=== PATIENT | male | born 1990 | race Caucasian/White ===

== ENCOUNTER 2017-06-11 21:30 | Emergency (ER) | payer OTHER ==
[2017-06-11] MEDS ORDERED: SODIUM CHLORIDE 0.9% 1,000 ML IV STA (21:39)
[2017-06-11] MEDS ORDERED: IBUPROFEN 400 MG TAB PO STA (21:40)
[2017-06-11] MEDS ORDERED: ACETAMINOPHEN TAB 500 MG TAB PO STA (21:40)
[2017-06-11] MEDS ORDERED: FAMOTIDINE 20 MG/2 ML VIAL IV STA (21:43)
--- NOTE | 2017-06-11 21:43 | ED ---
General Adult HPI - General Chief complaint: Upper Respiratory Infection Stated complaint: General pain, congestion Time Seen by Provider: 06/11/17 21:35 Source: patient, family, EMS, RN notes reviewed Mode of arrival: EMS Limitations: no limitations - History of Present Illness Initial comments: patient is a pleasant 26-year-old male presenting to the emergency department with multiple complaints. Onset of symptoms was this morning. Patient has had sinus congestion with drainage. Patient has had cough with green productive sputum. Patient has had chills unclear if he has had a fever. Patient feels achy all over. Patient has some more discomfort in his chest than other places. Patient does feel somewhat short of breath. Patient is nauseated and did vomit a couple of times. Nausea improved with Zofran by EMS. no abdominal pain. Patient states it hurts to move. - Related Data Home Medications Medication Instructions Recorded Confirmed Aspirin 162 mg PO ONCE PRN 06/11/17 06/11/17 Previous Rx's Medication Instructions Recorded Oseltamivir [Tamiflu] 75 mg PO Q12HR #9 cap 06/11/17 Allergies Allergy/AdvReac Type Severity Reaction Status Date / Time Penicillins Allergy Rash/Hives Verified 06/11/17 21:49 Review of Systems ROS Statement: Those systems with pertinent positive or pertinent negative responses have been documented in the HPI. ROS Other: All systems not noted in ROS Statement are negative. Constitutional: Reports: chills Eyes: Denies: eye pain ENT: Reports: congestion Respiratory: Reports: cough, dyspnea Cardiovascular: Reports: chest pain Endocrine: Reports: fatigue Gastrointestinal: Reports: nausea, vomiting Genitourinary: Denies: dysuria Musculoskeletal: Denies: joint swelling Skin: Denies: rash Neurological: Denies: weakness Past Medical History Additional Past Medical History / Comment(s): cerebral palsy, History of Any Multi-Drug Resistant Organisms: None Reported Past Surgical History: No Surgical Hx Reported Past Psychological History: No Psychological Hx Reported Smoking Status: Former smoker Past Alcohol Use History: Rare Past Drug Use History: None Reported General Exam Limitations: no limitations General appearance: alert, in no apparent distress Head exam: Present: atraumatic Eye exam: Present: normal appearance, PERRL ENT exam: Present: normal oropharynx Neck exam: Present: normal inspection Respiratory exam: Present: normal lung sounds bilaterally Cardiovascular Exam: Present: regular rate, normal rhythm Expanded Peripheral pulses: 2+: Dorsalis Pedis (R), Dorsalis Pedis (L) GI/Abdominal exam: Present: soft, tenderness (mild epigastric tenderness). Absent: distended Extremities exam: Present: other (leg atrophy). Absent: pedal edema, calf tenderness Back exam: Present: normal inspection Neurological exam: Present: alert Psychiatric exam: Present: normal affect, normal mood Skin exam: Present: normal color Course Vital Signs 06/11/17 06/11/17 21:37 23:02 Temperature 100.2 F H 101.1 F H Pulse Rate 109 H 100 Respiratory 20 18 Rate Blood Pressure 124/60 108/55 O2 Sat by Pulse 98 98 Oximetry EKG Findings - EKG Comments: EKG Findings:: normal sinus rhythm 93. WA 156. QRS 88. QT 344. QTC 427. Left axis. Normal QRS. No acute ST change. Medical Decision Making - Medical Decision Making Patient reevaluated and is starting to feel much better. Patient and family updated on results. - Lab Data Result diagrams: 06/11/17 22:09 06/11/17 22:09 Lab Results 06/11/17 06/11/17 06/11/17 Range/Units 22:09 22:09 22:09 WBC 4.0 (3.8-10.6) k/uL RBC 4.93 (4.30-5.90) m/uL Hgb 14.4 (13.0-17.5) gm/dL Hct 44.8 (39.0-53.0) % MCV 90.8 (80.0-100.0) fL MCH 29.3 (25.0-35.0) pg MCHC 32.2 (31.0-37.0) g/dL RDW 14.0 (11.5-15.5) % Plt Count 171 (150-450) k/uL Neutrophils % 78 % Lymphocytes % 8 % Monocytes % 9 % Eosinophils % 3 % Basophils % 1 % Neutrophils # 3.1 (1.3-7.7) k/uL Lymphocytes # 0.3 L (1.0-4.8) k/uL Monocytes # 0.4 (0-1.0) k/uL Eosinophils # 0.1 (0-0.7) k/uL Basophils # 0.0 (0-0.2) k/uL PT (9.0-12.0) sec INR (<1.2) APTT (22.0-30.0) sec D-Dimer (<0.60) mg/L FEU Sodium 138 (137-145) mmol/L Potassium 3.5 (3.5-5.1) mmol/L Chloride 103 (98-107) mmol/L Carbon Dioxide 22 (22-30) mmol/L Anion Gap 13 mmol/L BUN 16 (9-20) mg/dL Creatinine 1.09 (0.66-1.25) mg/dL Est GFR (MDRD) Af Amer >60 (>60 ml/min/1.73 sqM) Est GFR (MDRD) Non-Af >60 (>60 ml/min/1.73 sqM) Glucose 95 (74-99) mg/dL Calcium 9.4 (8.4-10.2) mg/dL Total Bilirubin 0.5 (0.2-1.3) mg/dL AST 26 (17-59) U/L ALT 22 (21-72) U/L Alkaline Phosphatase 50 (38-126) U/L Total Creatine Kinase 89 (55-170) U/L CK-MB (CK-2) <0.2 (0.0-2.4) ng/mL CK-MB (CK-2) Rel Index Troponin I <0.012 (0.000-0.034) ng/mL Total Protein 6.7 (6.3-8.2) g/dL Albumin 4.4 (3.5-5.0) g/dL Urine Color Urine Appearance (Clear) Urine pH (5.0-8.0) Ur Specific [place] (1.001-1.035) Urine Protein (Negative) Urine Glucose (UA) (Negative) Urine Ketones (Negative) Urine Blood (Negative) Urine Nitrite (Negative) Urine Bilirubin (Negative) Urine Urobilinogen (<2.0) mg/dL Ur Leukocyte Esterase (Negative) Urine RBC (0-5) /hpf Urine WBC (0-5) /hpf Urine Mucus (None) /hpf Influenza Type A RNA (Not Detectd) Influenza Type B (PCR) (Not Detectd) 06/11/17 06/11/17 06/11/17 Range/Units 22:09 22:55 23:04 WBC (3.8-10.6) k/uL RBC (4.30-5.90) m/uL Hgb (13.0-17.5) gm/dL Hct (39.0-53.0) % MCV (80.0-100.0) fL MCH (25.0-35.0) pg MCHC (31.0-37.0) g/dL RDW (11.5-15.5) % Plt Count (150-450) k/uL Neutrophils % % Lymphocytes % % Monocytes % % Eosinophils % % Basophils % % Neutrophils # (1.3-7.7) k/uL Lymphocytes # (1.0-4.8) k/uL Monocytes # (0-1.0) k/uL Eosinophils # (0-0.7) k/uL Basophils # (0-0.2) k/uL PT 11.2 (9.0-12.0) sec INR 1.2 H (<1.2) APTT 26.1 (22.0-30.0) sec D-Dimer <0.17 (<0.60) mg/L FEU Sodium (137-145) mmol/L Potassium (3.5-5.1) mmol/L Chloride (98-107) mmol/L Carbon Dioxide (22-30) mmol/L Anion Gap mmol/L BUN (9-20) mg/dL Creatinine (0.66-1.25) mg/dL Est GFR (MDRD) Af Amer (>60 ml/min/1.73 sqM) Est GFR (MDRD) Non-Af (>60 ml/min/1.73 sqM) Glucose (74-99) mg/dL Calcium (8.4-10.2) mg/dL Total Bilirubin (0.2-1.3) mg/dL AST (17-59) U/L ALT (21-72) U/L Alkaline Phosphatase (38-126) U/L Total Creatine Kinase (55-170) U/L CK-MB (CK-2) (0.0-2.4) ng/mL CK-MB (CK-2) Rel Index Troponin I (0.000-0.034) ng/mL Total Protein (6.3-8.2) g/dL Albumin (3.5-5.0) g/dL Urine Color Yellow Urine Appearance Clear (Clear) Urine pH 8.5 H (5.0-8.0) Ur Specific [place] 1.023 (1.001-1.035) Urine Protein 1+ H (Negative) Urine Glucose (UA) Negative (Negative) Urine Ketones 1+ H (Negative) Urine Blood Negative (Negative) Urine Nitrite Negative (Negative) Urine Bilirubin Negative (Negative) Urine Urobilinogen 6.0 (<2.0) mg/dL Ur Leukocyte Esterase Negative (Negative) Urine RBC <1 (0-5) /hpf Urine WBC <1 (0-5) /hpf Urine Mucus Rare H (None) /hpf Influenza Type A RNA Detected H (Not Detectd) Influenza Type B (PCR) Not Detected (Not Detectd) - Radiology Data Radiology results: image reviewed (Chest and abdominal x-ray reveals no acute abnormality.) Disposition Clinical Impression: Influenza Disposition: HOME SELF-CARE Condition: Stable Instructions: Influenza (ED) Additional Instructions: please follow-up with primary care physician in the next couple days for recheck. Return for difficulty breathing, worsening or changing symptoms or other concerns. Please continue [id number] Tylenol or Motrin if needed for fever. Prescriptions: Oseltamivir [Tamiflu] 75 mg PO Q12HR #9 cap Referrals: Deepika Alejandro MD [STAFF PHYSICIAN] - 1-2 days Ann Marie Diez MD [REFERRING] - 1-2 days Time of Disposition: 23:36
[2017-06-11 22:21] LABS: Basophils % (A) 1 %; Eosinophils # (A) 0.1 k/uL (0-0.7); Eosinophils % (A) 3 %; HCT 44.8 % (39.0-53.0); HGB 14.4 gm/dL (13.0-17.5); Lymphocytes # (A) 0.3 k/uL (1.0-4.8); Lymphocytes % (A) 8 %; MCH 29.3 pg (25.0-35.0); MCHC 32.2 g/dL (31.0-37.0); MCV 90.8 fL (80.0-100.0); Monocytes # (A) 0.4 k/uL (0-1.0); Monocytes % (A) 9 %; Neutrophils # (A) 3.1 k/uL (1.3-7.7); Neutrophils % (A) 78 %; Platelet Count 171 k/uL (150-450); RBC 4.93 m/uL (4.30-5.90)
--- NOTE | 2017-06-11 22:29 | XR ---
EXAMINATION TYPE: XR chest 2V DATE OF EXAM: 06/11/2017 COMPARISON: 07/07/2015 HISTORY: Short of breath TECHNIQUE: Frontal and lateral views of the chest are obtained. FINDINGS: Heart and mediastinum are normal. Lungs are clear. Diaphragm is normal. There are chest le ads. IMPRESSION: Normal chest. No change.
--- NOTE | 2017-06-11 22:31 | XR ---
EXAMINATION TYPE: XR abdomen 1V DATE OF EXAM: 06/11/2017 COMPARISON: NONE HISTORY: Pain TECHNIQUE: 2 views FINDINGS: There is no sign of intestinal obstruction or pneumoperitoneum. Fecal pattern is normal. Th ere is no sign of a mass. There are no pathologic calcifications over the kidneys. There is some mild deformity of the hip joints consistent with some degree of hip dysplasia that is more on the right s tressa compared to the left. IMPRESSION: Nonacute abdomen. Hip dysplasia.
[2017-06-11 22:39] LABS: ALT 22 U/L (21-72); AST 26 U/L (17-59); Albumin 4.4 g/dL (3.5-5.0); Alkaline Phosphatase 50 U/L (38-126); Anion Gap 13 mmol/L; Blood Urea Nitrogen 16 mg/dL (9-20); Calcium 9.4 mg/dL (8.4-10.2); Carbon Dioxide 22 mmol/L (22-30); Chloride 103 mmol/L (98-107); D-Dimer <0.17 mg/L FEU (<0.60); Glucose 95 mg/dL (74-99); INR 1.2 (<1.2); Partial Thromboplastin Time 26.1 sec (22.0-30.0); Potassium 3.5 mmol/L (3.5-5.1); Prothrombin Time 11.2 sec (9.0-12.0); Sodium 138 mmol/L (137-145); Total Bilirubin 0.5 mg/dL (0.2-1.3); Total Protein 6.7 g/dL (6.3-8.2)
[2017-06-11 22:42] LABS: Creatine Kinase 89 U/L (55-170)
[2017-06-11 22:57] LABS: Creatine Kinase MB <0.2 ng/mL (0.0-2.4); Troponin I <0.012 ng/mL (0.000-0.034)
[2017-06-11 23:03] VITALS: RESP 18
[2017-06-11 23:15] LABS: Appearance,Urine Clear (Clear); Bilirubin,Urine Negative (Negative); Blood,Urine Negative (Negative); Color,Urine Yellow; Glucose,Urine (UA) Negative (Negative); Ketones,Urine 1+ (Negative); Leukocyte Esterase,Urine Negative (Negative); Mucus,Urine Rare /hpf; Nitrite,Urine Negative (Negative); PH, Urine 8.5 (5.0-8.0); Protein,Urine 1+ (Negative); RBC,Urine <1 /hpf (0-5); Specific Gravity,Urine 1.023 (1.001-1.035); WBC,Urine <1 /hpf (0-5)
[2017-06-11] MEDS ORDERED: OSELTAMIVIR 75 MG CAP PO STA (23:34)
[2017-06-11 23:47] VITALS: BP 103/69; PULSE 91; TEMP 100.5
== END 2017-06-11 23:46 | disposition home or self-care (01) ==
LOC: EC 21:30
DX: J11.1 Influenza due to unidentified influenza virus with other respiratory manifestations (principal); M62.58 Muscle wasting and atrophy, not elsewhere classified, other site; Z87.891 Personal history of nicotine dependence; Z88.0 Allergy status to penicillin
CPT/HCPCS: 36415; 71046; 74018; 80053; 81001; 82550; 82553; 84484; 85025; 85379; 85610; 85730; 87040; 87502; 93005; 96361; 96374; 99284

== ENCOUNTER 2017-11-08 19:50 | Emergency (ER) | payer OTHER ==
--- NOTE | 2017-11-08 20:35 | ED ---
General Adult HPI - General Chief complaint: Extremity Injury, Upper Stated complaint: fall/hand injury Time Seen by Provider: 11/08/17 20:09 Source: patient, RN notes reviewed Mode of arrival: ambulatory Limitations: no limitations - History of Present Illness Initial comments: 27-year-old male presents to the emergency department for a chief complaint of right hand pain 6 hours. Patient was at his friend's house when he tripped in a ditch and fell on his right hand. Patient states his third digit seemed dislocated by his friend pulled on it and got it back into place. Patient states the pain in his hand has continued and the dorsal aspect of the pain has continued to swell. Patient also complaints of some numbness on the palmar aspect of the left hand. Patient also complaints of some dorsal wrist pain. Patient did not hit his head or lose consciousness. No other injuries. Patient has no other complaints at this time including shortness of breath, chest pain, abdominal pain, nausea or vomiting, headache, or visual changes. - Related Data Home Medications Medication Instructions Recorded Confirmed Aspirin 162 mg PO ONCE PRN 06/11/17 06/11/17 Previous Rx's Medication Instructions Recorded Oseltamivir [Tamiflu] 75 mg PO Q12HR #9 cap 06/11/17 Ibuprofen [Motrin] 600 mg PO Q6HR PRN #20 tab 11/08/17 Allergies Allergy/AdvReac Type Severity Reaction Status Date / Time Penicillins Allergy Rash/Hives Verified 11/08/17 20:01 Review of Systems ROS Statement: Those systems with pertinent positive or pertinent negative responses have been documented in the HPI. ROS Other: All systems not noted in ROS Statement are negative. Past Medical History Additional Past Medical History / Comment(s): cerebral palsy, History of Any Multi-Drug Resistant Organisms: None Reported Past Surgical History: No Surgical Hx Reported Past Psychological History: No Psychological Hx Reported Smoking Status: Former smoker Past Alcohol Use History: Rare Past Drug Use History: None Reported General Exam Limitations: no limitations General appearance: alert, in no apparent distress Head exam: Present: atraumatic, normocephalic, normal inspection Eye exam: Present: normal appearance ENT exam: Present: normal exam, mucous membranes moist Neck exam: Present: normal inspection, full ROM. Absent: tenderness, meningismus, lymphadenopathy Respiratory exam: Present: normal lung sounds bilaterally. Absent: respiratory distress, wheezes, rales, rhonchi, stridor Cardiovascular Exam: Present: regular rate, normal rhythm, normal heart sounds. Absent: systolic murmur, diastolic murmur, rubs, gallop, clicks Extremities exam: Present: full ROM (Full range of motion of the right wrist and digits in the right hand.), tenderness (Tenderness to the dorsal right hand along the third metacarpal. Tenderness to the dorsal right wrist as well. No scaphoid tenderness. No palmar tenderness.), normal capillary refill (Refill less than 2 seconds and radial pulse 2+ in the right upper extremity.), joint swelling (Patient does have some moderate swelling to the dorsal right hand. No step-off palpated.), other (Sensation intact in the right upper extremity. Third digit does not seem to be dislocated and seems well articulated.) Course Vital Signs 11/08/17 11/08/17 19:58 21:39 Temperature 98.8 F 98.9 F Pulse Rate 66 67 Respiratory 20 18 Rate Blood Pressure 123/70 103/57 O2 Sat by Pulse 96 98 Oximetry Procedures - Procedures Initial comment: Neurovascular intact before splint application Indication: Third metacarpal fracture Type: Volar short arm, right Wounds: no abrasions or lacerations underneath splint Neurovascular status: patient has sensation and movement of digits extending outside the splint, there is no cyanosis, capillary refill < 2 seconds Follow-up: patient given number for orthopedics and instructed to phone to make an appointment. Patient aware he can return to the Emergency Department if any difficulties. Medical Decision Making - Medical Decision Making 27-year-old male patient sitting emergency department for a chief complaint of right hand pain 6 hours. Patient fell on his right hand. Patient states he thinks his third digit was dislocated at the time but that he got it back in place. On exam patient has tenderness of the dorsal right hand along the third digit as well as the dorsal right wrist. No scaphoid tenderness. Patient has full range motion of the wrist and digits of the right hand. Patient has pain with the explosive technician strength of the right hand. Neurovascular intact in the right upper extremity. X-ray of the right hand shows a nondisplaced fracture of the midshaft of the third metacarpal. X-ray of the right wrist shows no acute fractures or dislocations. Patient was splinted in a volar short arm splint. He will follow up with orthopedics in one to 2 days. He will take Motrin or Tylenol for pain. He will return if he has any worsening symptoms. Disposition Clinical Impression: Fracture, metacarpal shaft Disposition: HOME SELF-CARE Condition: Good Instructions: Hand Fracture (ED) Additional Instructions: Please take Motrin and Tylenol for pain. Please rest ice and elevate the right hand. Please follow-up with orthopedics in one to 2 days. Return to the emergency department if you have any worsening symptoms. Prescriptions: Ibuprofen [Motrin] 600 mg PO Q6HR PRN #20 tab PRN Reason: Pain Is patient prescribed a controlled substance at d/c from ED?: No Referrals: Romel Monzon MD [Primary Care Provider] - 1-2 days Avery Loza DO [Doctor of Osteopathic Medicine] - 1-2 days Time of Disposition: 21:44
--- NOTE | 2017-11-08 21:14 | XR ---
EXAMINATION TYPE: XR hand complete RT DATE OF EXAM: 11/08/2017 COMPARISON: NONE HISTORY: Fall. Hand pain. TECHNIQUE: 3 views FINDINGS: There is nondisplaced fracture of the midshaft of the third metacarpal. Joint spaces are no rmal. The remainder of the exam is unremarkable. IMPRESSION: Nondisplaced third metacarpal fracture.
--- NOTE | 2017-11-08 21:15 | XR ---
EXAMINATION TYPE: XR wrist complete RT DATE OF EXAM: 11/08/2017 COMPARISON: NONE HISTORY: Fall. Wrist pain. TECHNIQUE: 4 views FINDINGS: The carpal bones are intact. Distal radius and ulna appear normal. Joint spaces are normal. IMPRESSION: Negative right wrist exam.
[2017-11-08 21:39] VITALS: BP 103/57; PULSE 67; RESP 18; TEMP 98.9
== END 2017-11-08 21:48 | disposition home or self-care (01) ==
LOC: EC 19:50
DX: S62.352A Nondisplaced fracture of shaft of third metacarpal bone, right hand, initial encounter for closed fracture (principal); Z87.891 Personal history of nicotine dependence; Z88.0 Allergy status to penicillin; W18.09XA Striking against other object with subsequent fall, initial encounter; Y92.89 Other specified places as the place of occurrence of the external cause
CPT/HCPCS: 29125; 99283

== ENCOUNTER 2018-06-16 13:37 | Emergency (ER) | payer OTHER ==
[2018-06-16 13:43] VITALS: RESP 18; TEMP 97.3
[2018-06-16] MEDS ORDERED: HYDROmorphone 1 MG/ML 1 ML SYRINGE IVP STA (13:47)
--- NOTE | 2018-06-16 14:12 | ED ---
General Adult HPI - General Chief complaint: Extremity Injury, Lower Stated complaint: Rt Knee Dislocation Time Seen by Provider: 06/16/18 13:41 Source: patient, RN notes reviewed, old records reviewed Mode of arrival: EMS Limitations: no limitations - History of Present Illness Initial comments: 27-year-old male with cerebral palsy presents with right knee pain. Patient states he was kneeling on the right knee, felt a pop and has been unable to move this extremity of the flexed position since his injury. Patient states he' s had this happen at least 10 times a year over the past several years. Denies pain or numbness in the distal leg. No other injuries reported. No hip pain. No ankle pain. Patient states he is normally able to adjust his knee without medical evaluation. - Related Data Previous Rx's Medication Instructions Recorded Cyclobenzaprine [Flexeril] 5 mg PO TID PRN #9 tablet 06/16/18 Ibuprofen [Motrin] 600 mg PO Q8HR PRN #24 tab 06/16/18 Allergies Allergy/AdvReac Type Severity Reaction Status Date / Time Penicillins Allergy Swelling Verified 06/16/18 14:00 Review of Systems ROS Statement: Those systems with pertinent positive or pertinent negative responses have been documented in the HPI. ROS Other: All systems not noted in ROS Statement are negative. Past Medical History Additional Past Medical History / Comment(s): cerebral palsy, History of Any Multi-Drug Resistant Organisms: None Reported Past Surgical History: No Surgical Hx Reported Past Psychological History: No Psychological Hx Reported Smoking Status: Former smoker Past Alcohol Use History: Rare Past Drug Use History: None Reported General Exam Limitations: no limitations General appearance: alert, in no apparent distress Head exam: Present: atraumatic, normocephalic Eye exam: Present: normal appearance, PERRL ENT exam: Present: normal exam Neck exam: Present: normal inspection. Absent: tenderness, meningismus Respiratory exam: Present: normal lung sounds bilaterally. Absent: respiratory distress Cardiovascular Exam: Present: regular rate, normal rhythm GI/Abdominal exam: Present: soft. Absent: distended, tenderness Extremities exam: Present: normal capillary refill, other (Deformity right knee , flexed position, normal cap refill, normal pulses distally) Neurological exam: Present: alert, oriented X3, CN II-XII intact Psychiatric exam: Present: normal affect, normal mood Skin exam: Present: warm, dry, intact. Absent: cyanosis, diaphoretic Course Vital Signs 06/16/18 06/16/18 13:40 16:02 Temperature 97.3 F L Pulse Rate 66 64 Respiratory 18 18 Rate Blood Pressure 123/84 120/73 O2 Sat by Pulse 99 99 Oximetry Medical Decision Making - Medical Decision Making X-rays obtained, knee is in flexion but there is no evidence of fracture or dislocation. Somewhat limited study secondary infection. Patient is given pain medication and muscle relaxer. He is able to be extended with some pain. Patient has returned to his normal position. He does have some contracture at baseline. He states he is back to normal. He will be given Motrin and Flexeril. Will follow-up with his primary care physician. Return with worsening or changing symptoms. - Lab Data Result diagrams: 06/16/18 14:47 06/16/18 14:47 Lab Results 06/16/18 06/16/18 06/16/18 Range/Units 14:47 14:47 14:47 WBC 3.6 L (3.8-10.6) k/uL RBC 5.10 (4.30-5.90) m/uL Hgb 15.0 (13.0-17.5) gm/dL Hct 44.3 (39.0-53.0) % MCV 86.9 (80.0-100.0) fL MCH 29.5 (25.0-35.0) pg MCHC 33.9 (31.0-37.0) g/dL RDW 12.6 (11.5-15.5) % Plt Count 171 (150-450) k/uL Neutrophils % 55 % Lymphocytes % 29 % Monocytes % 6 % Eosinophils % 7 % Basophils % 0 % Neutrophils # 2.0 (1.3-7.7) k/uL Lymphocytes # 1.1 (1.0-4.8) k/uL Monocytes # 0.2 (0-1.0) k/uL Eosinophils # 0.2 (0-0.7) k/uL Basophils # 0.0 (0-0.2) k/uL PT 11.4 (9.0-12.0) sec INR 1.1 (<1.2) APTT 28.3 (22.0-30.0) sec Sodium 139 (137-145) mmol/L Potassium 4.3 (3.5-5.1) mmol/L Chloride 105 (98-107) mmol/L Carbon Dioxide 26 (22-30) mmol/L Anion Gap 8 mmol/L BUN 15 (9-20) mg/dL Creatinine 0.84 (0.66-1.25) mg/dL Est GFR (CKD-EPI)AfAm >90 (>60 ml/min/1.73 sqM) Est GFR (CKD-EPI)NonAf >90 (>60 ml/min/1.73 sqM) Glucose 104 H (74-99) mg/dL Calcium 9.1 (8.4-10.2) mg/dL Total Bilirubin 0.7 (0.2-1.3) mg/dL AST 23 (17-59) U/L ALT 24 (21-72) U/L Alkaline Phosphatase 31 L (38-126) U/L Total Protein 6.6 (6.3-8.2) g/dL Albumin 4.3 (3.5-5.0) g/dL Disposition Clinical Impression: Muscle spasm Disposition: HOME SELF-CARE Instructions: Knee Sprain (ED), Muscle Spasm (ED) Prescriptions: Cyclobenzaprine [Flexeril] 5 mg PO TID PRN #9 tablet PRN Reason: Muscle Spasm Ibuprofen [Motrin] 600 mg PO Q8HR PRN #24 tab PRN Reason: Pain Is patient prescribed a controlled substance at d/c from ED?: No Referrals: Romel Monzon MD [Primary Care Provider] - 1-2 days Time of Disposition: 16:30
--- NOTE | 2018-06-16 14:30 | XR ---
EXAMINATION TYPE: XR knee complete RT DATE OF EXAM: 06/16/2018 COMPARISON: NONE HISTORY: Pain TECHNIQUE: 3 views FINDINGS: I see no fracture nor dislocation. Exam is limited due to the flexion position of the knee. There is no sign of joint effusion. There is no patella dislocation. IMPRESSION: Negative limited right knee exam.
[2018-06-16] MEDS ORDERED: DIAZEPAM 5 MG/ML 2 ML INJ IVP STA (14:50)
[2018-06-16 14:58] LABS: Basophils % (A) 0 %; Eosinophils # (A) 0.2 k/uL (0-0.7); Eosinophils % (A) 7 %; HCT 44.3 % (39.0-53.0); Lymphocytes # (A) 1.1 k/uL (1.0-4.8); Lymphocytes % (A) 29 %; MCH 29.5 pg (25.0-35.0); MCHC 33.9 g/dL (31.0-37.0); MCV 86.9 fL (80.0-100.0); Monocytes # (A) 0.2 k/uL (0-1.0); Monocytes % (A) 6 %; Neutrophils % (A) 55 %; Platelet Count 171 k/uL (150-450); RDW 12.6 % (11.5-15.5); WBC 3.6 k/uL (3.8-10.6)
[2018-06-16 15:06] LABS: INR 1.1 (<1.2); Partial Thromboplastin Time 28.3 sec (22.0-30.0); Prothrombin Time 11.4 sec (9.0-12.0)
[2018-06-16 15:07] LABS: ALT 24 U/L (21-72); AST 23 U/L (17-59); Albumin 4.3 g/dL (3.5-5.0); Alkaline Phosphatase 31 U/L (38-126); Anion Gap 8 mmol/L; Blood Urea Nitrogen 15 mg/dL (9-20); Calcium 9.1 mg/dL (8.4-10.2); Carbon Dioxide 26 mmol/L (22-30); Chloride 105 mmol/L (98-107); Glucose 104 mg/dL (74-99); Potassium 4.3 mmol/L (3.5-5.1); Sodium 139 mmol/L (137-145); Total Bilirubin 0.7 mg/dL (0.2-1.3); Total Protein 6.6 g/dL (6.3-8.2)
[2018-06-16] MEDS ORDERED: KETOROLAC 30 MG/ML 1 ML VIAL IVP STA (15:53)
[2018-06-16 16:04] VITALS: BP 120/73; PULSE 64
== END 2018-06-16 16:55 | disposition home or self-care (01) ==
LOC: EC 13:37
DX: M62.838 Other muscle spasm (principal); G80.9 Cerebral palsy, unspecified; Z87.891 Personal history of nicotine dependence; Z88.0 Allergy status to penicillin; X50.9XXA Other and unspecified overexertion or strenuous movements or postures, initial encounter; Y93.89 Activity, other specified
CPT/HCPCS: 36415; 80053; 85025; 85610; 85730; 73562; 99285; 96374; 96375 ×2; J3360; J1885; J1170

== ENCOUNTER 2023-04-04 19:41 | Emergency (ER) | payer OTHER ==
[2023-04-04 21:22] VITALS: RESP 18
[2023-04-04] MEDS ORDERED: IBUPROFEN 600 MG TAB PO STA (21:42)
[2023-04-04] MEDS ORDERED: ACETAMINOPHEN TAB 325 MG TAB PO STA (21:42)
[2023-04-05] MEDS ORDERED: SODIUM CHLORIDE 0.9% 500 ML 500 ML IV STA (00:22)
[2023-04-05] MEDS ORDERED: SODIUM CHLORIDE 0.9% 1,000 ML IV STA (00:22)
[2023-04-05 00:31] VITALS: TEMP 98.8
--- NOTE | 2023-04-05 00:36 | ED ---
Fever HPI - General Chief Complaint: Fever Stated Complaint: lump on groin,eye pain Time Seen by Provider: 04/05/23 00:04 Source: patient, RN notes reviewed, old records reviewed Mode of arrival: ambulatory Limitations: no limitations - History of Present Illness Initial Comments: This is a 32-year-old male to the emergency department for evaluation today. Patient presents today for evaluation regards to also complaints or pain left leg pain left leg swelling. Patient also does has not been feeling well. Patient has no known sick contacts no travel history no other complaints aside from swelling of area in the left groin MD Complaint: fever (Patient is found to have a fever here in the ER which he did not know he had), other (Left leg pain left leg mass) -: days(s) Temperature Source: subjective Associated Symptoms: denies other symptoms Treatments Prior to Arrival: none - Related Data Previous Rx's Medication Instructions Recorded Cyclobenzaprine [Flexeril] 5 mg PO TID PRN #9 tablet 06/16/18 Ibuprofen [Motrin] 600 mg PO Q8HR PRN #24 tab 06/16/18 Allergies Allergy/AdvReac Type Severity Reaction Status Date / Time Penicillins Allergy Swelling Verified 04/04/23 21:10 Review of Systems ROS Statement: Those systems with pertinent positive or pertinent negative responses have been documented in the HPI. ROS Other: All systems not noted in ROS Statement are negative. Past Medical History Additional Past Medical History / Comment(s): cerebral palsy, History of Any Multi-Drug Resistant Organisms: None Reported Past Surgical History: No Surgical Hx Reported Past Psychological History: No Psychological Hx Reported Smoking Status: Current every day smoker Past Alcohol Use History: Rare Past Drug Use History: None Reported General Exam General appearance: alert, in no apparent distress Head exam: Present: atraumatic, normocephalic, normal inspection Eye exam: Present: normal appearance, PERRL, EOMI. Absent: scleral icterus, conjunctival injection, periorbital swelling ENT exam: Present: normal exam, mucous membranes moist Neck exam: Present: normal inspection. Absent: tenderness, meningismus, lymphadenopathy Respiratory exam: Present: normal lung sounds bilaterally. Absent: respiratory distress, wheezes, rales, rhonchi, stridor Cardiovascular Exam: Present: regular rate, normal rhythm, normal heart sounds. Absent: systolic murmur, diastolic murmur, rubs, gallop, clicks GI/Abdominal exam: Present: soft, normal bowel sounds. Absent: distended, tenderness, guarding, rebound, rigid Extremities exam: Present: normal inspection, full ROM, normal capillary refill. Absent: tenderness, pedal edema, joint swelling, calf tenderness Back exam: Present: normal inspection Neurological exam: Present: alert, oriented X3, CN II-XII intact Psychiatric exam: Present: normal affect, normal mood Skin exam: Present: warm, dry, intact, normal color. Absent: rash Course Vital Signs 04/04/23 04/05/23 04/05/23 21:04 00:25 05:28 Temperature 100.2 F H 98.8 F Pulse Rate 91 56 L Respiratory 18 18 Rate Blood Pressure 115/68 96/56 O2 Sat by Pulse 97 99 Oximetry - Reevaluation(s) Reevaluation #1: 04/05/23 01:14 Record is reviewed Reevaluation #2: 04/05/23 01:16 Patient's fevers improved Reevaluation #3: Patient informed results questions answered Reevaluation #4: 04/05/23 01:16 Was pt. sent in by a medical professional or institution (, PA, CAPITAL PROJECT ENGINEER, urgent care, hospital, or group home...) When possible be specific @ -no Did you speak to anyone other than the patient for history (EMS, parent, family, police, friend...)? What history was obtained from this source @ -no Did you review nursing and triage notes (agree or disagree)? Why? @ -agree Are old charts reviewed (outside hosp., previous admission, EMS record, old EKG, old radiological studies, urgent care reports/EKG's, group home records)? Report findings @ -yes Differential Diagnosis (chest pain, altered mental status, abdominal pain women, abdominal pain men, vaginal bleeding, weakness, fever, dyspnea, syncope, headache, dizziness, GI bleed, back pain, seizure, CVA, palpatations, mental health, musculoskeletal)? @ -prior EKG interpreted by me (3pts min.). @ -no X-rays interpreted by me (1pt min.). @ -no CT interpreted by me (1pt min.). @ -no U/S interpreted by me (1pt. min.). @ -yes What testing was considered but not performed or refused? (CT, X-rays, U/S, labs)? Why? @ -none What meds were considered but not given or refused? Why? @ -none Did you discuss the management of the patient with other professionals (professionals i.e. , PA, CAPITAL PROJECT ENGINEER, lab, RT, psych nurse, social media editor, stock grader, teacher, contracting officer, correctional casework specialist)? Give summary @ -no Was smoking cessation discussed for >3mins.? @ -no Was critical care preformed (if so, how long)? @ -no Were there social determinants of health that impacted care today? How? (Homelessness, low income, unemployed, alcoholism, drug addiction, transportation, low edu. Level, literacy, decrease access to med. care, intermediate, rehab)? @ -none Was there de-escalation of care discussed even if they declined (Discuss DNR or withdrawal of care, Hospice)? DNR status @ -no What co-morbidities impacted this encounter? (DM, HTN, Smoking, COPD, CAD, Cancer, CVA, ARF, Chemo, Hep., AIDS, mental health diagnosis, sleep apnea, morbid obesity)? @ -none Was patient admitted / discharged? Hospital course, mention meds given and route, prescriptions, significant lab abnormalities, going to OR and other pertinent info. @ - 32 male to the ER for evaluation of left groin lump, patient is lymphadenopathy no other acute findings here in the ER no cause a fever found. Patient is in no distress and can be discharged home Discharge Undiagnosed new problem with uncertain prognosis? @ -no Drug Therapy requiring intensive monitoring for toxicity (Heparin, Nitro, Insulin, Cardizem)? @ -no Were any procedures done? @ -no Diagnosis/symptom? @ -Lymphadenopathy groin, fever Acute, or Chronic, or Acute on Chronic? @ -Acute Uncomplicated (without systemic symptoms) or Complicated (systemic symptoms)? @ -Complicated Side effects of treatment? @ -no Exacerbation, Progression, or Severe Exacerbation? @ -exacerbation Poses a threat to life or bodily function? How? (Chest pain, [place], [place], pneumonia, PE, COPD, DKA, ARF, appy, cholecystitis, CVA, Diverticulitis, Homicidal, Suicidal, threat to staff... and all critical care pts) @ -no Reevaluation #5: 04/05/23 01:16 Differential Fever: Pneumonia, viral URI, endocarditis, myocarditis, pericarditis, otitis, sinusitis, peritonsillar Abscess, retropharyngeal Abscess, epiglottitis, perito nitis, appendicitis, Miroslava cystitis, diverticulitis, hepatitis, colitis, UTI, PID, TOA, pyelonephritis, prostatitis, epididymitis, meningitis, encephalitis, pulmonary embolism, CVA, thyroid storm, pancreatitis, adrenal crisis, cavernous sinus thrombosis, this is not meant to be an all-inclusive list. Medical Decision Making - Medical Decision Making 32 male to the ER for evaluation of left groin lump, patient is lymphadenopathy no other acute findings here in the ER no cause a fever found. Patient is in no distress and can be discharged home - Lab Data Result diagrams: 04/05/23 00:53 04/05/23 00:53 Lab Results 04/04/23 04/05/23 04/05/23 Range/Units 22:44 00:25 00:53 WBC 6.1 (3.8-10.6) k/uL RBC 4.93 (4.30-5.90) m/uL Hgb 14.8 (13.0-17.5) gm/dL Hct 42.3 (39.0-53.0) % MCV 85.8 (80.0-100.0) fL MCH 30.0 (25.0-35.0) pg MCHC 35.0 (31.0-37.0) g/dL RDW 12.6 (11.5-15.5) % Plt Count 144 L (150-450) k/uL MPV 7.7 Neutrophils % 63 % Lymphocytes % 18 % Monocytes % 12 % Eosinophils % 3 % Basophils % 1 % Neutrophils # 3.9 (1.3-7.7) k/uL Lymphocytes # 1.1 (1.0-4.8) k/uL Monocytes # 0.7 (0-1.0) k/uL Eosinophils # 0.2 (0-0.7) k/uL Basophils # 0.0 (0-0.2) k/uL Sodium (137-145) mmol/L Potassium (3.5-5.1) mmol/L Chloride (98-107) mmol/L Carbon Dioxide (22-30) mmol/L Anion Gap mmol/L BUN (9-20) mg/dL Creatinine (0.66-1.25) mg/dL Est GFR (CKD-EPI)AfAm (>60 ml/min/1.73 sqM) Est GFR (CKD-EPI)NonAf (>60 ml/min/1.73 sqM) Glucose (74-99) mg/dL Calcium (8.4-10.2) mg/dL Phosphorus (2.5-4.5) mg/dL Magnesium (1.6-2.3) mg/dL Total Bilirubin (0.2-1.3) mg/dL AST (17-59) U/L ALT (4-49) U/L Alkaline Phosphatase (38-126) U/L Troponin I (0.000-0.034) ng/mL Total Protein (6.3-8.2) g/dL Albumin (3.5-5.0) g/dL Urine Color Yellow Urine Appearance Clear (Clear) Urine pH 6.5 (5.0-8.0) Ur Specific [place] 1.026 (1.001-1.035) Urine Protein Trace H (Negative) Urine Glucose (UA) Negative (Negative) Urine Ketones Negative (Negative) Urine Blood Negative (Negative) Urine Nitrite Negative (Negative) Urine Bilirubin Negative (Negative) Urine Urobilinogen 4.0 (<2.0) mg/dL Ur Leukocyte Esterase Negative (Negative) Influenza Type A (PCR) Not Detected (Not Detectd) Influenza Type B (PCR) Not Detected (Not Detectd) RSV (PCR) Not Detected (Not Detectd) SARS-CoV-2 (PCR) Not Detected (Not Detectd) 04/05/23 04/05/23 Range/Units 00:53 00:53 WBC (3.8-10.6) k/uL RBC (4.30-5.90) m/uL Hgb (13.0-17.5) gm/dL Hct (39.0-53.0) % MCV (80.0-100.0) fL MCH (25.0-35.0) pg MCHC (31.0-37.0) g/dL RDW (11.5-15.5) % Plt Count (150-450) k/uL MPV Neutrophils % % Lymphocytes % % Monocytes % % Eosinophils % % Basophils % % Neutrophils # (1.3-7.7) k/uL Lymphocytes # (1.0-4.8) k/uL Monocytes # (0-1.0) k/uL Eosinophils # (0-0.7) k/uL Basophils # (0-0.2) k/uL Sodium 135 L (137-145) mmol/L Potassium 3.7 (3.5-5.1) mmol/L Chloride 103 (98-107) mmol/L Carbon Dioxide 24 (22-30) mmol/L Anion Gap 8 mmol/L BUN 18 (9-20) mg/dL Creatinine 0.95 (0.66-1.25) mg/dL Est GFR (CKD-EPI)AfAm >90 (>60 ml/min/1.73 sqM) Est GFR (CKD-EPI)NonAf >90 (>60 ml/min/1.73 sqM) Glucose 101 H (74-99) mg/dL Calcium 8.6 (8.4-10.2) mg/dL Phosphorus 4.2 (2.5-4.5) mg/dL Magnesium 2.0 (1.6-2.3) mg/dL Total Bilirubin 0.8 (0.2-1.3) mg/dL AST 25 (17-59) U/L ALT 21 (4-49) U/L Alkaline Phosphatase 61 (38-126) U/L Troponin I <0.012 (0.000-0.034) ng/mL Total Protein 6.4 (6.3-8.2) g/dL Albumin 3.8 (3.5-5.0) g/dL Urine Color Urine Appearance (Clear) Urine pH (5.0-8.0) Ur Specific [place] (1.001-1.035) Urine Protein (Negative) Urine Glucose (UA) (Negative) Urine Ketones (Negative) Urine Blood (Negative) Urine Nitrite (Negative) Urine Bilirubin (Negative) Urine Urobilinogen (<2.0) mg/dL Ur Leukocyte Esterase (Negative) Influenza Type A (PCR) (Not Detectd) Influenza Type B (PCR) (Not Detectd) RSV (PCR) (Not Detectd) SARS-CoV-2 (PCR) (Not Detectd) - Radiology Data Radiology results: report reviewed (Ultrasound groin is negative for acute disease), image reviewed Disposition Clinical Impression: Lymphadenopathy, Fever Disposition: HOME SELF-CARE Condition: Good Instructions (If sedation given, give patient instructions): Fever in Adults (ED), Lymphadenopathy (ED) Is patient prescribed a controlled substance at d/c from ED?: No Referrals: Kristy Cabrales [Primary Care Provider] - 1-2 days Time of Disposition: 05:00
[2023-04-05 01:01] LABS: Appearance,Urine Clear (Clear); Bilirubin,Urine Negative (Negative); Blood,Urine Negative (Negative); Color,Urine Yellow; Glucose,Urine (UA) Negative (Negative); Ketones,Urine Negative (Negative); Leukocyte Esterase,Urine Negative (Negative); Nitrite,Urine Negative (Negative); PH, Urine 6.5 (5.0-8.0); Protein,Urine Trace (Negative); Specific Gravity,Urine 1.026 (1.001-1.035)
[2023-04-05 01:32] LABS: Basophils % (A) 1 %; Eosinophils # (A) 0.2 k/uL (0-0.7); Eosinophils % (A) 3 %; HCT 42.3 % (39.0-53.0); HGB 14.8 gm/dL (13.0-17.5); Lymphocytes # (A) 1.1 k/uL (1.0-4.8); Lymphocytes % (A) 18 %; MCV 85.8 fL (80.0-100.0); Mean Platelet Volume 7.7; Monocytes # (A) 0.7 k/uL (0-1.0); Monocytes % (A) 12 %; Neutrophils # (A) 3.9 k/uL (1.3-7.7); Neutrophils % (A) 63 %; Platelet Count 144 k/uL (150-450); RBC 4.93 m/uL (4.30-5.90); RDW 12.6 % (11.5-15.5); WBC 6.1 k/uL (3.8-10.6)
[2023-04-05 01:38] LABS: ALT 21 U/L (4-49); AST 25 U/L (17-59); African American GFR (CKD) >90 (>60 ml/min/1.73 sqM); Albumin 3.8 g/dL (3.5-5.0); Alkaline Phosphatase 61 U/L (38-126); Anion Gap 8 mmol/L; Blood Urea Nitrogen 18 mg/dL (9-20); Calcium 8.6 mg/dL (8.4-10.2); Carbon Dioxide 24 mmol/L (22-30); Chloride 103 mmol/L (98-107); Glucose 101 mg/dL (74-99); Non-African American GFR(CKD) >90 (>60 ml/min/1.73 sqM); Phosphorus 4.2 mg/dL (2.5-4.5); Potassium 3.7 mmol/L (3.5-5.1); Sodium 135 mmol/L (137-145); Total Bilirubin 0.8 mg/dL (0.2-1.3); Total Protein 6.4 g/dL (6.3-8.2)
--- NOTE | 2023-04-05 04:52 | US ---
EXAM: US groin Limited CLINICAL HISTORY: ITS.REASON US Reason: mass L anterior thigh TECHNIQUE: Real-time ultrasound of the soft tissues of the left groin with image documentation. COMPARISON: No relevant prior studies available. FINDINGS: Soft tissues: Unremarkable. Lymph nodes: 3.3 x 3.5 x 2.1 cm left groin abnormal lymph node. IMPRESSION: Left inguinal lymphadenopathy as above
[2023-04-05 05:48] VITALS: BP 96/56; PULSE 56
== END 2023-04-05 05:34 | disposition home or self-care (01) ==
LOC: EC 19:41
DX: R59.1 Generalized enlarged lymph nodes (principal); R50.9 Fever, unspecified; F17.200 Nicotine dependence, unspecified, uncomplicated; Z88.0 Allergy status to penicillin; Z20.822 Contact with and (suspected) exposure to COVID-19
CPT/HCPCS: 36415; 80053; 81003; 83735; 84100; 84484; 85025; 87636; 96360; 96361; 99284

== ENCOUNTER → 2024-02-25 | Outpatient (CLI) | payer OTHER ==
--- NOTE | 2024-02-25 08:33 | US ---
EXAMINATION TYPE: US abdomen complete DATE OF EXAM: 02/25/2024 COMPARISON: NONE CLINICAL INDICATION: Male, 33 years old with history of D72.819 DECREASED WHITE BLOOD CELL COUNT, UNS PECIF; Leukopenia TECHNIQUE: Multiple sonographic images of the abdomen are obtained. FINDINGS: EXAM MEASUREMENTS: Liver Length: 11.0 cm Gallbladder Wall: 0.1 cm CBD: 0.3 cm Spleen: 11.2 cm Right Kidney: 8.9x4.2x5.4 cm Left Kidney: 8.8x4.9x5.3 cm MANAGER COMPLIANCE NOTES: Pancreas: Obscured by bowel gas Liver: wnl Gallbladder: three irregular polyps measuring up to 5mm Evidence for sonographic Llamas's sign: No CBD: wnl Spleen: wnl Right Kidney: wnl Left Kidney: wnl Upper IVC: wnl Abd Aorta: wnl exam limited by bowel gas and tight rib spaces The liver is homogenous. The intrahepatic portion of the IVC and proximal abdominal aorta are within normal limits. There is no evidence of cholelithiasis. Common bile duct is unremarkable. The visu alized portions of the pancreas are homogenous. The spleen is unremarkable. Kidneys are symmetric a nd free of hydronephrosis. No renal lesions are seen. IMPRESSION: 1. No evidence for acute process. 2. Gallbladder polyp suggested measuring up to 5 mm short-term follow-up in 6 months recommended to ensure stability. [facility], , 02/25/2024 8:31 AM
== END | disposition home or self-care (01) ==
LOC: RADUSWWP 06:51
PROVIDERS: ATTEND Internal Medicine Hematology & Oncology
DX: D72.819 Decreased white blood cell count, unspecified
CPT/HCPCS: 76700